=== PATIENT | female | born 1995 | race Caucasian/White ===

== ENCOUNTER 2016-09-27 06:25 | Emergency (ER) | payer OTHER ==
[~2016-09-27] VITALS: Ht 170.2 cm; Wt 127.3 kg
[2016-09-27 06:27] VITALS: BP 138/89; PULSE 99; RESP 18; O2SAT 100
--- NOTE | 2016-09-27 06:31 | ED.REPORT ---
HPI-Preg Under 20 Weeks Date of Service Sep 27, 2016 ED Provider: Dr. Ke Oliveros Patient is a 21 year old female who is 3 months with a history of miscarriages who reports to the ED complaining of abdominal and vaginal pain onset four hours ago. Pt c/o associated fever, lower right quadrant back pain, vaginal bleeding and spotting, and has vomited 7 times since onset of pain. Pt describes the abdominal pain as severe and constant, began in the lower right abdomen and has since moved into upper right abdomen. Pt experienced heavy spotting at the beginning of the . Pt describes pain as similar to previous miscarriages she has had. Patient has as 3 year old son and had three miscarriages previous to having a child but has not had a miscarriage since. Patient had a with last . She has been under a lot of stress lately and has not recently had intercourse or used tampons. Pt has been receiving care. Nursing Notes Stated Complaint: 3 MONTHS /PELVIC PAIN Chief Complaint: Female Abdominal Pain Nursing Notes Reviewed: Yes Allergies: Coded Allergies: azithromycin (Verified Allergy, Severe, legs swell up, 09/27/16) levofloxacin (Verified Allergy, Unknown, can't breath, 09/27/16) tramadol (Verified Allergy, Unknown, itchy, rash, 09/27/16) Scheduled Cephalexin (Keflex) 500 Mg Capsule 500 MG PO QID General Time Seen by Provider: 06:30 Chief Complaint Abdominal cramping, Vaginal bleeding Context: : Known 1st trim Hx Obtained From: Patient Arrived By: Walk-in Onset Occurred: 1 - 4 hours ago Symptom Duration: Since onset Location: : Abdomen lower: Vagina Quality: Cramping Severity: Current: Moderate Severity: Maximum: Moderate Past Medical History Past Medical History A3- RH+ Reports: Asthma Reports: Migraines Past Surgical History Reports: Smoking History Unknown if Ever Smoker Social History Pt has her 2 year old child in the room. Alcohol Use: Denies alcohol use Other Social History: , Lives with children, Local resident Ambulatory Status Independent Review of Systems Constitutional: Reports: Fever GI: Reports: Abdominal pain (RLQ), Nausea, Vomiting Female: Reports: Vaginal bleeding - abnl (spotting) Musculoskeletal: Reports: Back pain Complete sys rev & neg: except as marked. Physical Exam Initial Vital Signs Vital Signs (First) Date Time Temp Pulse Resp B/P Pulse Ox O2 Delivery O2 Flow Rate FiO2 09/27/16 06:27 36.6 99 18 138/89 100 Room Air Initial VS: Reviewed Head / Eyes: Atraumatic, Normocephalic, PERRL ENT: Mucous membranes moist, Conjunctiva normal, No scleral icterus Neck: Supple, Non-tender, Full range of motion Respiratory: Breath sounds normal, Clear to auscultation, No respiratory distress Cardiovascular: Regular rate & rhythm, Heart sounds normal, Intact distal pulses Skin: Warm, Dry, No cyanosis Neurologic: Alert, Oriented, Nonfocal Psychiatric: Mood/affect normal, Behavior normal, Normal thought content General/Constitutional: Awake Behavior: Positive: Anxious, Tearful Appearance / Presentation: Positive: Obese Abdomen: No guarding, No rebound Tenderness/Guarding/Rebound: Positive: Tender RLQ... Female Genitourinary: Atraumatic, Os closed no bleeding : FHTs NL, FHT present by U/S spontaneous movement positive heart tones Interpretation & Diagnostics Interpretation & Diagnostics: PELVIC MRI IMPRESSION: 1. No pericecal inflammatory changes to suggest appendicitis. Findings discussed with Dr. Carrizales at the conclusion of the study. Dictated by: Chidi Saldana M.D. on 09/27/2016 at 13:27 Approved by: Chidi Saldana M.D. on 09/27/2016 at 13:27 Lab Results Interpretation Result Diagram: 09/27/16 0710 09/27/16 0710 Test 09/27/16 07:10 09/27/16 08:30 09/27/16 08:39 White Blood Count 13.3th/mm3 (3.8-10.1) Red Blood Count 4.40mil/mm3 (3.90-5.20) Hemoglobin 13.3g/dL (12.0-15.6) Hematocrit 39.7% (35.0-46.0) Mean Corpuscular Volume 90.2fL (81-100) Mean Corpuscular Hemoglobin 30.2pg (27.0-35.0) Mean Corpuscular Hemoglobin Concent 33.5% (32.0-37.0) Red Cell Distribution Width 14.3% (12.3-15.4) Platelet Count 223bil/L (150-400) Sodium Level 137mEq/L (134-144) Potassium Level 4.1mEq/L (3.5-5.2) Chloride Level 101mEq/L (97-108) Carbon Dioxide Level 22mmol/L (18-29) Blood Urea Nitrogen 7mg/dL (6-20) Creatinine 0.50mg/dL (0.57-1.00) Estimat Glomerular Filtration Rate 219mL/min (>59) Glucose Level 127mg/dL (60-99) Calcium Level 8.7mg/dL (8.5-10.1) Total Bilirubin 0.3mg/dL (0.0-1.2) Aspartate Amino Transf (AST/SGOT) 13U/L (0-50) Alanine Aminotransferase (ALT/SGPT) 9U/L (0-32) Alkaline Phosphatase 61U/L (25-150) Total Protein 6.5g/dL (6.4-8.4) Albumin 3.4g/dL (3.4-5.0) HCG Beta Subunit 31418wWL/mL Hold Urine Received (Received) Urine Color Straw (YELLOW) Urine Appearance Hazy (CLEAR,HAZY) Urine pH 6.0 (5.0-8.0) Urine Specific [place] 1.010 (1.003-1.035) Urine Protein Negativemg/dL (NEG,TRACE) Urine Glucose (UA) Negativemg/dL (NEGATIVE) Urine Ketones Tracemg/dL (NEGATIVE) Urine Occult Blood Moderate (NEGATIVE) Urine Nitrite Negative (NEGATIVE) Urine Bilirubin Negative (NEGATIVE) Urine Urobilinogen Normalmg/dL (NORMAL) Urine Leukocyte Esterase Moderate (NEGATIVE) Urine RBC 3-10/hpf (0-2) Urine WBC >50/hpf (0-5) Urine Epithelial Cells Occasional/hpf (NONE-MOD) Urine Crystals None seen (NONE SEEN) Urine Bacteria Few/hpf (NONE-FEW) Urine Hyaline Casts None/lpf (NONE) Urine Granular Casts None seen (NONE SEEN) Urine Waxy Casts None seen (NONE SEEN) Urine Red Blood Cell Casts None seen (NONE SEEN) Urine White Blood Cell Casts None seen (NONE SEEN) Urine Mucus None seen (None Seen) Urine Trichomonas None seen (NONE SEEN) Urine Yeast None (NONE SEEN) Urinalysis Comment None Urine Culture Reflexed Indicated US Focused OB IMPRESSION: Normal appearing gestation, heart rate normal, no perigestational hemorrhage seen. No sonographic evidence of appendicitis but quality of visualization of the right lower quadrant is quite limited. A normal appendix certainly was not identified. Dictated by: Chip Green M.D. on 09/27/2016 at 9:21 Approved by: Chip Green M.D. on 09/27/2016 at 9:21 Exam Performed by: Radiologist Re-Eval/Medical Decision Med Decision/Clinical Course Concern for right lower quadrant pain and the possibility of appendicitis, additionally likely threatened miscarriage and urinary tract infection. No evidence of sinusitis on MRI, no indication for admission. Patient will be started on Keflex and return precautions are given Re-Evaluation/Progress #1: Time of Eval: 06:53 Re-Evaluation/Progress Note: Pt rechecked. Ultra sound performed. Spontaneous movement and positive heartones. Re-Evaluation/Progress #2: Time of Eval: 08:33 Patient Status: Mild relief Re-Evaluation/Progress Note: Pt rechecked. Pelvic exam performed. Re-Evaluation/Progress #3: Time of Eval: 08:49 Re-Evaluation/Progress Note: Pt rechecked and informed of diagnosis and plan of treatment. Will consult with surgeon and hospitalist. Re-Evaluation/Progress #4: Time of Eval: 13:07 Re-Evaluation/Progress Note: Pt rechecked. Informed pt of diagnosis of UTI and threatened miscarriage and plan for treatment. Pt understands and agrees with plan. F/U and RTER warnings given. All questions addressed. Consultation #1: Referral / Consult Name: Corona Jordan MD Consulted With: Surgeon Call Returned at: 08:52 Credit Risk Associate: Agrees with eval, Agrees with plan Note: Recommends MRI of the abdomen. MRI approved by Dr. Sebastian Consultation #2: Referral / Consult Name: Nadia Sebastian MD Call Returned at: 08:54 Credit Risk Associate: Agrees with plan (for MRI. ) Note: Radiologist Counseled Regarding: Diagnosis, Lab results, Need for follow-up, When/why to return to ED Discharge & Departure Primary Impression: UTI (urinary tract infection) during Trimester: first trimester Qualified Code: O23.41 - Unspecified infection of urinary tract in , first trimester Additional Impression: Threatened miscarriage in early Disposition: Home Discharge Condition All VS Reviewed: Yes Condition: Stable Additional Instructions: Thank you for coming to the ER this morning. There is no evidence of appendicitis. You do have a urinary tract infection. This is also classified as a threatened miscarriage. I hope that you feel better very soon! Avoid heavy lifting over 5 pounds. No vaginal insertion. Take Tylenol as needed for discomfort. Stay hydrated. Take Keflex as prescribed. Call your RELEASE SPECIALIST today for a close follow-up appointment. Return to the ER if you develop high fever, severe uncontrolled pain, heavy vaginal bleeding or other concerns. Referrals: Humberto Hatch MD (PCP) Alesia Attestation Portion of this note were transcribed by Tamera Chapman and Esther Jacobson. I, Dr. Oliveros, personally performed the history, physcial exam, and medical decision- making: I reviewed and confirmed the accuracy for the information in the transcribed note. Signed by: alesia Hartman, 09/20/16 1172 copies to: Humberto Hatch MD, Timothy S DO Sep 27, 2016 06:31 ESTHER JACOBSON Sep 27, 2016 06:50 Tamera Chapman Sep 27, 2016 10:07
[2016-09-27] MEDS ORDERED: 0.9% Sodium Chloride 1,000 ML IV ONE (06:41)
[2016-09-27] MEDS ORDERED: Ondansetron 2 mg/mL 2 mL Inj IVPUSH PRN (06:45)
[2016-09-27 07:51] LABS: Mean Corpuscular Hemoglobin 30.2 pg (27.0-35.0); Mean Corpuscular Volume 90.2 fL (81-100)
[2016-09-27 08:37] VITALS: BP 125/54; PULSE 87; RESP 12; O2SAT 98
--- NOTE | 2016-09-27 09:23 | DRSVH ---
PROCEDURE: US OB<14 WKS+OB TRANSVAG INDICATIONS: RLQ pain, TECHNIQUE: Real-time scanning was performed of the fetus and maternal pelvic organs, with image documentation. Endovaginal scanning was also performed to better visualize the fetus and maternal ovaries. COMPARISON: [facility] Ultrasound, US, US OB<14 WKS+OB TRANSVAG, 08/27/2016, 15:17. FINDINGS: Embryo: 163 beats per minute, viable gestation, no perigestational hemorrhage found. Measurement variability in dating: +/- 4 weeks by LMP, +/- 7 days by mean sac diameter (use before 6 weeks gestation if crown-rump length not able to be measured), +/- 5 days by crown-rump length (6-12 weeks gestation). Maternal organs: Ovaries normal considering gestational status. Limited images through the kidneys demonstrate no hydronephrosis. IMPRESSION: Normal appearing gestation, heart rate normal, no perigestational hemorrhage seen. No sonographic evidence of appendicitis but quality of visualization of the right lower quadrant is quite limited. A normal appendix certainly was not identified. Dictated by: Chip Green M.D. on 09/27/2016 at 9:21 Approved by: Chip Green M.D. on 09/27/2016 at 9:21
[2016-09-27 09:30] LABS: APPEARANCE,URINE HAZY (CLEAR,HAZY); COLOR,URINE STRAW (YELLOW); OCCULT BLOOD,URINE MODERATE (NEGATIVE); UROBILINOGEN,URINE NORMAL (NORMAL)
[2016-09-27 11:15] VITALS: BP 115/68; PULSE 96; RESP 15; O2SAT 98
[2016-09-27] MEDS ORDERED: CEPH-512 PO (13:12)
[2016-09-27 13:25] VITALS: BP 115/68; PULSE 96; RESP 15; O2SAT 98
--- NOTE | 2016-09-27 13:29 | DRSVH ---
PROCEDURE: MRI PELVIS WITHOUT CONTRAST ([id number]) INDICATIONS: RLQ pain, r/o appy, protocol TECHNIQUE: Noncontrast coronal, axial, and sagittal HASTE, axial HASTE with fat saturation, axial 2-D FLASH in- and [id number], axial 2-D time of flight, axial diffusion and ADC from the kidneys to the symphysis . COMPARISON: [facility], US, US OB<14 WKS+OB TRANSVAG, 09/27/2016, 7:47. FINDINGS: Image quality: Excellent. Bowel: No pathologic free fluid. Visualized small and large bowel loops are normal in caliber. No asymmetric soft tissue edema or pericecal inflammatory changes in the right lower quadrant to suggest acute appendicitis. Genitourinary system: Kidneys are normal in size. No evidence of hydronephrosis. Bladder wall thic kness is normal. Fetus: A single intrauterine fetus is noted with an anterior placenta. Soft tissues: No ventral or inguinal hernias. Bones: Marrow has normal overall signal. IMPRESSION: 1. No pericecal inflammatory changes to suggest appendicitis. Findings discussed with Dr. Carrizales at the conclusion of the study. Dictated by: Chidi Saldana M.D. on 09/27/2016 at 13:27 Approved by: Chidi Saldana M.D. on 09/27/2016 at 13:27
== END 2016-09-27 13:25 | disposition home or self-care (01) ==
LOC: SED 06:25
DX: O20.0 Threatened abortion (principal); O23.41 Unspecified infection of urinary tract in pregnancy, first trimester; J45.909 Unspecified asthma, uncomplicated; Z88.1 Allergy status to other antibiotic agents; Z88.5 Allergy status to narcotic agent; Z3A.13 13 weeks gestation of pregnancy
CPT/HCPCS: 36415; 72195; 76801; 76817; 80053; 81000; 84702; 85027; 87086; 87088; 96361; 96374; 99285; J2405; J7030